=== PATIENT | female | born 1960 | race Caucasian/White ===

== ENCOUNTER 2019-10-15 12:55 | Emergency (ER) | payer OTHER, SELFPAY ==
--- NOTE | ~2019-10-15 | XR_ITS ---
EXAMINATION: XR foot RT min 3V DATE: 10/15/2019 13:27 INDICATION: Right toe pain and erythema. TECHNIQUE: 4 views of right foot were obtained. COMPARISON: None. FINDINGS: Bone alignment is normal. There is chronic flattening of head of second metatarsal, consist ent with osteonecrosis (Freiberg's infraction). There is mild osteoarthritis of first metatarsophalan geal joint. There are enthesophytes at the posterior and plantar aspects of calcaneal tuberosity. IMPRESSION: 1. Mild osteoarthritis of first metatarsophalangeal joint. Reviewed, dictated and finalized at location A.
--- NOTE | 2019-10-15 13:03 | ED.GENADULT ---
HPI - General Adult General Chief complaint: Extremity Problem,Nontraumatic Stated complaint: Redness in toe Time Seen by Provider: 10/15/19 13:03 Source: patient Mode of arrival: ambulatory Limitations: no limitations History of Present Illness HPI narrative: 59-year-old female patient presents to the [facility] with complaints of right great toe pain. Patient states on she went to her primary doctor's office and had a wound lanced and was placed on Keflex. Patient states later on that evening she noticed that her right great toe was slightly red and swollen. Patient knows that she was missing some skin from the bottom side of the right great toe. Denies any specific injury that she can remember. Patient is diabetic and does have slight neuropathy to the feet. Patient states she has been swimming recently but denies any swimming since the skin has been off of the toe. Patient states that the toe also has had issues with toenail fungus in the past. Patient states that she noticed that the toe continues to throb, swell and increase in redness. Patient states that she did start taking the Keflex on but denies doing any types of dressing or antibiotic ointment to the great toe. Related Data Home Medications Medication Instructions Recorded Confirmed escitalopram oxalate 20 mg tablet 20 mg PO DAILY 10/11/19 10/15/19 glipizide 10 mg tablet 10 mg PO DAILY 10/11/19 10/15/19 liraglutide 0.6 mg/0.1 mL (18 mg/3 0.6 mg SUB-Q DAILY 10/11/19 10/15/19 mL) subcutaneous pen injector lisinopril 20 mg tablet 20 mg PO DAILY 10/11/19 10/15/19 metformin 1,000 mg tablet 1,000 mg PO DAILY 10/11/19 10/15/19 sitagliptin 100 mg tablet 100 mg PO DAILY 10/11/19 10/15/19 Allergies Allergy/AdvReac Type Severity Reaction Status Date / Time No Known Allergies Allergy Verified 10/12/19 08:48 Review of Systems Review of Systems: Narrative: CONSTITUTIONAL: Denies fever, chills, or sweats. EYES: Denies visual changes, redness, or discharge. ENT: Denies rhinorrhea, congestion, sore throat, or otalgia. CARDIOVASCULAR: Denies chest pain, palpitations, or edema. RESPIRATORY: Denies cough or dyspnea. GASTROINTESTINAL: Denies abdominal pain, nausea, vomiting, or diarrhea. GENITOURINARY: Denies dysuria or hematuria. SKIN: Denies rash or itching. MUSCULOSKELETAL: Denies back pain, joint pain, or myalgia. Positive great toe pain right NEUROLOGIC: Denies headache, numbness, or weakness. PSYCHIATRIC: Denies anxiety or depression. [facility] Past Medical History Medical History Depression DM type 1 (diabetes mellitus, type 1) HTN (hypertension) Surgical History Surgical History History of laparoscopic appendectomy Hx laparoscopic cholecystectomy Hx of abdominal hysterectomy Family History Family History Sibling Diabetes mellitus Pancreatic cancer Heart disease Father No problems noted. Mother Heart disease Other Cerebrovascular accident Family history of cardiovascular disease Social History Social History Smoking status: Never smoker Alcohol intake: never Gender identity (if verbalized by the patient): Female Comments At the time of my signature I agree with nursing past medical history, surgical, social, and family history. There is no relevant family history pertinent to the presenting complaint. Exam Narrative: Exam Narrative: GENERAL: Well-appearing, well-nourished, and in no acute distress. HEAD: Normocephalic, atraumatic. EYES: PERRLA and EOMI. ENT: Nares clear, no rhinorrhea or epistaxis. Mucous membranes moist. NECK: Supple. No lymphadenopathy CHEST: Clear to auscultation. No respiratory distress. HEART: Regular rate and rhythm. No murmur heard. Normal periphera
[2019-10-15 13:07] VITALS: BP 142/64; PULSE 73; RESP 16; TEMP 36.2; O2SAT 100
== END 2019-10-15 13:47 | disposition home or self-care (01) ==
PROVIDERS: Emergency Provider Nurse Practitioner Family; PCP Internal Medicine
DX: L03.031 Cellulitis of right toe (principal); S91.101A Unspecified open wound of right great toe without damage to nail, initial encounter; X58.XXXA Exposure to other specified factors, initial encounter; F32.9 Major depressive disorder, single episode, unspecified; I10 Essential (primary) hypertension; E10.40 Type 1 diabetes mellitus with diabetic neuropathy, unspecified
CPT/HCPCS: 73630; 99213; G0463

== ENCOUNTER 2021-07-30 15:07 | Emergency (ER) | payer OTHER, SELFPAY ==
--- NOTE | ~2021-07-30 | XR_ITS ---
EXAMINATION: XR shoulder RT min 2V DATE: 07/30/2021 15:55 INDICATION: Inability to move right shoulder. TECHNIQUE: 2 views of right shoulder were obtained. COMPARISON: None. FINDINGS: Bone alignment is normal. No fracture. The glenohumeral joint is normal. There is moderate acromioclavicular joint osteoarthritis. There is calcific tendinitis of the rotator cuff. There are c hanges of anterior fusion procedure in cervical spine. IMPRESSION: 1. Moderate osteoarthritis of acromioclavicular joint. 2. Calcific tendinitis of the rotator cuff. Reviewed, dictated and finalized at location A.
[2021-07-30 15:30] VITALS: BP 132/76; PULSE 69; RESP 16; TEMP 37.1; O2SAT 98
--- NOTE | 2021-07-30 15:39 | ED.UPPEXIN ---
HPI - Extremity Injury (Upper) General Chief Complaint: Extremity Problem,Nontraumatic Stated Complaint: right shoulder pain Time Seen by Provider: 07/30/21 15:41 Source: patient and RN notes reviewed Mode of arrival: ambulatory Limitations: no limitations History of Present Illness HPI narrative: 60-year-old female presents to the [facility] with complaints of right shoulder pain since waking up this morning. Decreased range of motion. Denies any trauma. States a friend from some Biofreeze on it. Full range of motion of the elbow and the wrist. Related Data Home Medications Medication Instructions Recorded Confirmed escitalopram oxalate 20 mg tablet 20 mg PO DAILY 10/11/19 07/30/21 glipizide 10 mg tablet 10 mg PO DAILY 10/11/19 07/30/21 liraglutide 0.6 mg/0.1 mL (18 mg/3 0.6 mg subcut DAILY 10/11/19 07/30/21 mL) subcutaneous pen injector (Victoza 3-Moises) lisinopril 20 mg tablet 20 mg PO DAILY 10/11/19 07/30/21 metformin 1,000 mg tablet 1,000 mg PO DAILY 10/11/19 07/30/21 sitagliptin 100 mg tablet (Januvia) 100 mg PO DAILY 10/11/19 07/30/21 Allergies Allergy/AdvReac Type Severity Reaction Status Date / Time No Known Allergies Allergy Verified 07/30/21 15:32 Review of Systems Review of Systems: All systems reviewed & are unremarkable except as noted in HPI and below Constitutional: Constitutional: Reports no additional constitutional complaints, Denies chills and Denies fever(s) Eyes: Eyes: Reports no additional eye complaints ENT: Reports system reviewed and no additional complaints, except as documented Cardiovascular: Cardiovascular: Reports no additional cardiovascular complaints Respiratory: Respiratory: Reports no additional respiratory complaints Gastrointestinal: Gastrointestinal: Reports no additional gastrointestinal complaints Musculoskeletal: Musculoskeletal: Reports as per HPI and Reports arthralgias (Right shoulder) Integumentary/Breasts: Skin/Breast: Reports system reviewed and no additional complaints, except as docu Neurologic: Reports system reviewed and no additional complaints, except as documented Psychiatric: Psychiatric: Reports no additional psychiatric complaints Allergic/Immunologic: Allergic/Immunologic: Reports no additional allergic/immunologic complaints [facility] Past Medical History Medical History (Updated 07/30/21 @ 16:03 by Lucia Blum APRN) Depression DM type 1 (diabetes mellitus, type 1) HTN (hypertension) Surgical History Surgical History History of laparoscopic appendectomy Hx laparoscopic cholecystectomy Hx of abdominal hysterectomy Family History Family History Sibling Diabetes mellitus Pancreatic cancer Heart disease Father No problems noted. Mother Heart disease Other Cerebrovascular accident Family history of cardiovascular disease Social History Social History Smoking status: Never smoker Alcohol intake: never Gender identity (if verbalized by the patient): Female Comments At the time of my signature, I reviewed and agree with the nursing past medical, surgical, social, and family history. There is no relevant family history pertinent to the patient complaint. Exam Const: General: healthy appearing, no acute distress and alert Nutritional Appearance: well nourished Orientation/consciousness: patient oriented x3 Limitations: no limitations HENMT: Head: normal to inspection Ears: external ears normal Eyes: Pupils: Equal, round and reactive pupils present Neck: Neck: normal visual inspection, no lymphadenopathy and no meningeal signs Chest: Chest palpation & inspection: normal inspection of the chest Resp: Effort & Inspection: normal respiratory effort and no use of accessory muscles Auscultation: clear to auscultation b
== END 2021-07-30 16:10 | disposition home or self-care (01) ==
PROVIDERS: Emergency Provider Nurse Practitioner
DX: M75.31 Calcific tendinitis of right shoulder (principal); M19.011 Primary osteoarthritis, right shoulder; I10 Essential (primary) hypertension; E10.9 Type 1 diabetes mellitus without complications; F32.A Depression, unspecified
CPT/HCPCS: 73030; 99213; G0463